=== PATIENT | female | born 2000 | race Caucasian/White ===

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

== ENCOUNTER 2022-08-21 21:56 | Emergency (ER) | payer BC, OTHER ==
[2022-08-22 01:36] VITALS: BP 111/69; PULSE 88
== END 2022-08-22 01:25 | disposition home or self-care (01) ==
LOC: MW.ED 21:56
DX: B34.9 Viral infection, unspecified (principal)
CPT/HCPCS: 71046; 71046-26; 99283

== ENCOUNTER 2024-12-22 16:28 | Emergency (ER) | payer BC, OTHER ==
[2024-12-22 18:04] VITALS: BP 123/76
[2024-12-22 19:19] LABS: BILIRUBIN,URINE NEGATIVE (NEGATIVE); COLOR,URINE YELLOW; GLUCOSE,URINE NEGATIVE (NEGATIVE); KETONES,URINE NEGATIVE (NEGATIVE); LEUKOCYTE ESTERASE,URINE NEGATIVE (NEGATIVE); NITRITE,URINE NEGATIVE (NEGATIVE); OCCULT BLOOD,URINE LARGE (NEGATIVE); PROTEIN,URINE NEGATIVE (NEGATIVE); UROBILINOGEN,URINE 0.2 EU/dL (<2.0)
[2024-12-22 19:22] LABS: APPEARANCE,URINE HAZY
[2024-12-22] MEDS: Lidocaine 4% Patch TOP STA (19:23)
[2024-12-22] MEDS: Ketorolac 30 MG/ML SDV IM ONE (19:23)
[2024-12-22] MEDS: Orphenadrine 60 MG/2 ML Inj IM ONE (19:24)
[2024-12-22 19:30] LABS: BACTERIA,URINE FEW (NEGATIVE); MUCUS,URINE LIGHT (NONE-MOD); SQUAMOUS EPITHELIAL CELLS,UR FEW; WBC,URINE 0-2 (0-5/HPF)
[2024-12-22 19:54] VITALS: PULSE 75
== END 2024-12-22 19:53 | disposition home or self-care (01) ==
LOC: MW.ED 16:28
DX: M54.41 Lumbago with sciatica, right side (principal); M54.42 Lumbago with sciatica, left side; Z75.8 Other problems related to medical facilities and other health care; Z79.899 Other long term (current) drug therapy
CPT/HCPCS: 81001; 81025; 96372; 99283; A9270; J1885; J2360

== ENCOUNTER 2025-04-14 20:34 | Emergency (ER) | payer SELFPAY ==
[2025-04-14] MEDS: Diphtheria,Pertussis(Acell),Tetanus Vaccine 0.5 ML Syringe IM ONE (20:41)
[2025-04-14] MEDS: Lidocaine 1% with EPINEPHrine 1:100,000 10 ML MDV INFILT ONE (20:43)
[2025-04-14] MEDS: Bacitracin Oint 1 GM U/D Packet TOP ONE (21:15)
[2025-04-14 21:51] VITALS: BP 129/72; PULSE 98
== END 2025-04-14 21:19 | disposition home or self-care (01) ==
LOC: MW.ED 20:34
DX: S01.81XA Laceration without foreign body of other part of head, initial encounter (principal); Z79.899 Other long term (current) drug therapy; Z23 Encounter for immunization; W19.XXXA Unspecified fall, initial encounter
CPT/HCPCS: 12002; 12013; 90471; 99282-25; 99283